=== PATIENT | male | born 1950 | race Caucasian/White ===

== ENCOUNTER 2016-12-02 11:26 | Outpatient (CLI) | payer MEDICARE ==
[~2016-12-02] VITALS: Ht 162.6 cm; Wt 93.2 kg
--- NOTE | ~2016-12-02 | HEMODYNAMI ---
PATIENT:JANELLE MAYERS MEDICAL RECORD: [id number] : 52 LOCATION:[facility] ADMISSION DATE: 12/02/16 Generatedon:12/02/201615:00 Patient name: JANELLE MAYERS Patient #: [id number] SSN: [id number] : 1950 Date of study: 12/02/2016 Page: Of Hemodynamic Procedure Report Patient Data Patient Demographics Procedure consent was obtained First Name: JANELLE Gender: Male Last Name: RIANA : 1950 Middle Initial: ARTEM Age: 66 year(s) Patient #: [id number] Race: SSN: [id number] Additional ID: [id number] Contact details Address: [address] [place] [address] ROAD State: [place] City: [place] Zip code: [address] Admission Admission Data Admission Date: 12/02/2016 Admission Time: 11:26 Arrival Date: 12/02/2016 Arrival Time: 13:30 Admit Source: Other Insurance Payor: Private health insurance Height (in.): 64 BSA: 2 (m2) Height (cm.): 162.56 BMI: 36.05 (kg/m2) Weight (lbs.): 210 Weight (kg.): 95.25 Lab Results Lab Result Date: 12/02/2016 Lab Result Time: 0:00 Biochemistry Name Units Result Min Max BUN mg/dl 16 --(---*)-- 7 18 Creatinine mg/dl 1 --(--*-)-- 0.6 1.3 CBC Name Units Result Min Max Hemoglobin g/dl 13.8 --(*---)-- 13.5 17.5 Procedure Procedure Types Cath Procedure Diagnostic Procedure C [facility] w/Coronaries w/Grafts Procedure Description Procedure Date Procedure Date: 12/02/2016 Procedure Start Time: 14:26 Procedure End Time: 14:56 Procedure Staff Name Function Elisa Artem RT Scrub Donna Juarez RN Nurse Mary Walls RT Monitor Jimmy Cerna MD Performing Physician Procedure Data Cath Procedure Fluoroscopy Diagnostic fluoroscopy Total fluoroscopy Time: 7.5 time: 7.5 min min Diagnostic fluoroscopy Total fluoroscopy dose: dose: 1015 mGy 1015 mGy Contrast Material Contrast Material Type Amount (ml) Isovue 370 57 Entry Location Entry Primary Successful Side Size Upsize Upsize Entry Closure Vargas ccessful Closure Location (Fr) 1 (Fr) 2 (Fr) Remarks Device Remarks Femoral Right 5 Fr Mechanical vein Compression Femoral Right 5 Fr Exoseal artery Estimated blood loss: 5 ml Diagnostic catheters Device Type Used For End Catheter Placement Cordis 5Fr JL 4.0 Left Coronary Catheter (MP) Angiography Cordis Infinity 5Fr AR Multi-vessel MOD Catheter Angiography [place] Sci 5Fr IMT Multi-vessel Catheter Angiography Cordis 5Fr Pigtail LV Angiography Catheter (MP) Procedure Complications No complications Procedure Medications Medication Administration Route Dosage Oxygen NC 2 l/min Heparin Flush Bag added to field 2 bags (1000units/500ml NS) Lidocaine 2% added to field 20 Benadryl I.V. 50 mg Versed I.V. 1 mg Fentanyl I.V. 50 mcg Versed I.V. 1 mg Fentanyl I.V. 50 mcg Fentanyl I.V. 50 mcg Fentanyl I.V. 50 mcg Hemodynamics Rest BSA: 2 (m2) HGB: 13.8 (g/dl) O2 Consumption: Estimated: 226.34 (ml/min) O2 Consu mption indexed: Estimated:113.17 (ml/min/m) Heart Rate: 61 (bpm) Pressure Samples Time Site Value (mmHg) Purpose Heart Use Rate(bpm) 14:51 LV 102/-42,-19 Snapshot 69 14:51 AO 109/35(64) Pullback 70 Gradients Valve Time Site Site 2 Mean SEP/DFP Peak To Heart Use 1 (mmHg) (sec/min) Peak Rate (mmHg) (bpm) Aortic 14:51 LV AO 9 36 70 109/35(64) Calculations Valve P-P Mean Valve Index Valve Source Name Gradient Area Flow (cm2) Aortic 9 9 Snapshots Pre Cath Intra NCS Post Cath Vital Signs Time Heart Resp SPO2 NIBP (mmHg) Rhythm Pain Sedation Rate (ipm) (%) Status Level (bpm) 14:15:21 59 18 95 129/78(112) NSR 0 (11) 10(A) , No pain 14:19:35 57 17 97 148/76(127) NSR 0 (11) 10(A) , No pain 14:23:51 57 15 96 122/78(102) NSR 0 (11) 10(A) , No pain 14:27:57 61 16 96 137/94(101) NSR 0 (11) 10(A) , No pain 14:32:56 64 16 97 Measuring NSR 0 (11) 10(A) , No pain 14:33:10 67 16 95 150/109(132) NSR 0 (11) 9(A) , No pain 14:37:22 66 16 98 156/95(120) NSR 0 (11) 9(A) , No pain 14:41:42 65 16 98 134/94(122) NSR 0 (11) 9(A) , No pain 14:45:58 67 16 98 143/84(122) NSR 0 (11) 9(A) , No pain 14:50:16 69 16 98 139/81(118) NSR 0 (11) 9(A) , No pain 14:54:37 69 21 97 130/79(107) NSR 0 (11) 9(A) , No pain 14:56:06 70 14 97 129/77(110) NSR 0 (11) 10(A) , No pain Medications Time Medication Route Dose Verified Delivered Reason Notes Effec tiveness by by 14:19:35 Oxygen NC 2 Jimmy Donna Per l/min Nehemiah Juarez RN physician 14:19:41 Heparin Flush added 2 Jimmy Jimmy used for Bag to bags Nehemiah Cerna MD procedure (1000units/500ml field NS) 14:19:56 Lidocaine 2% added 20ml Jimmy Jimmy used for to vial Nehemiah Cerna MD procedure field 14:20:04 Benadryl I.V. 50 mg Jimmy Donna Per Nehemiah Juarez RN physician 14:22:35 Versed I.V. 1 mg Jimmy Donna for Nehemiah Juarez RN sedation 14:22:48 Fentanyl I.V. 50 Jimmy Donna for mcg Nehemiah Juarez RN sedation 14:25:18 Versed I.V. 1 mg Jimmy Donna for Nehemiah Juarez RN sedation 14:25:30 Fentanyl I.V. 50 Jimmy Donna for nabil Juarez RN sedation 14:29:31 Fentanyl I.V. 50 Jimmy Donna for nabil Juarez RN sedation 14:40:31 Fentanyl I.V. 50 Jimmy Donna for nabil Juarez RN sedation Procedure Log Time Note 13:50:55 Donna Juarez RN sent for patient. Start room use. 14:07:10 Informed consent obtained and on chart 14:07:15 Admit Source: Other 14:07:20 Arrival Date: 12/02/2016 1:30:00 PM 14:07:28 Insurance Payor : Private health insurance 14:07:50 Patient Height : 162.56 inches 14:07:53 Patient Weight : 95.25 lbs 14:08:14 Diagnostic Cath Status : Elective 14:09:06 Time tracking: Regular hours 14:09:10 Plan of Care:Hemodynamics will remain stable., Cardiac rhythm will remain stable., Comfort level will be maintained., Respiratory function will remain adequate., Patient/ family verbilizes understanding of procedure., Procedure tolerated without complication., Recovers from procedure without complications.. 14:09:30 Patient received from Outpatients to [facility] Alert and oriented. Tansferred to table in Supine position. 14:09:31 Warm blankets applied, and dariusz hugger turned on for patient comfort. 14:09:32 Correct patient and procedure confirmed by team. 14:09:33 Signed procedure consent form obtained from patient. 14:14:15 ECG and BP/O2 sat monitors applied to patient. 14:14:17 Vital chart was started 14:14:19 Baseline sample Acquired. 14:14:25 Rhythm: sinus rhythm 14:14:27 Full Disclosure recording started 14:18:00 H&P Date Dictated: 11/04/2016 H&P Addendum completed by physician on day of procedure. (MUST COMPLETE FOR ALL OUTPATIENTS). 14:18:02 Pre-procedure instructions explained to patient. 14:18:02 Pre-op teaching completed and patient verbalized understanding. 14:18:03 Family in waiting room. 14:18:04 Patient NPO since Midnight. 14:19:35 Oxygen 2 l/min NC was given by Donna Juarez RN; Per physician; 14:19:41 Heparin Flush Bag (1000units/500ml NS) 2 bags added to field was given by Jimmy Cerna MD; used for procedure; 14:19:42 Is the patient allergic to Iodine/contrast media? No. 14:19:43 Was the patient premedicated? No 14:19:55 Is patient on blood thinner?Yes 14:19:56 Lidocaine 2% 20ml vial added to field was given by Jimmy Cerna MD; used for procedure; 14:19:57 ACC The patient was administered the following blood thiners within the last 24 hours: ACCAspirin 14:20:01 Patient diabetic? Yes. 14:20:03 If diabetic: On Metformin? Yes 14:20:04 Benadryl 50 mg I.V. was given by Donna Juarez RN; Per physician; 14:20:10 If on Metformin: Last Dose? 11/30/2016 14:20:13 Previous problem with sedation/anesthesia? No ? 14:20:15 Snore? Yes 14:20:16 Sleep apnea? No 14:20:17 Deviated septum? No 14:20:18 Opens mouth fully? Yes 14:20:19 Sticks out tongue? Yes 14:20:20 Airway obstruction? No ? 14:20:27 Dentures? Yes out 14:20:31 Pre procedure: right dorsailis pedis pulse 1+ Palpable, but thready & weak; easily obliterated 14:20:39 Patient pain scale 0/10 ?. 14:20:58 IV patent on arrival in left forearm with 0.9% NaCl at [facility]. 14:22:12 Lab Result : Creatinine 1 mg/dl 14:22:12 Lab Result : BUN 16 mg/dl 14:22:12 Lab Result : Hemoglobin 13.8 g/dl 14:22:15 Lab results completed and on chart. 14:22:18 Right groin area was prepped with chlora-prep and draped in sterile fashion 14:22:19 Alarms reviewed by R. N. 14:22:19 Sharps counted by scrub and verified by R.N. 14:22:20 Physician arrived 14:22:20 --------ALL STOP TIME OUT------ 14:22:21 Final Timeout: patient, procedure, and site verified with staff and physician. All members of the team are in agreement. 14:22:23 Right groin site verified by team. 14:22:30 Physical assessment completed. ASA score P 2 - A patient with mild systemic disease as per Jimmy Cerna MD. 14:22:33 Sedation plan: IV Moderate Sedation Versed, Fentanyl 14:22:35 Versed 1 mg I.V. was given by Donna Juaerz RN; for sedation; 14::38 Use device set Femoral Dx 14:22:39 Acist Syringe opened to sterile field. 14:22:39 Bag Decanter opened to sterile field. 14:22:40 Cardinal Cath Pack opened to sterile field. 14:22:40 Terumo 5Fr [place] Sheath opened to sterile field. 14:22:41 St Anastacio 260cm J .035 wire opened to sterile field. 14:22:41 Acist Hand Control opened to sterile field. 14:22:42 Acist Manifold opened to sterile field. 14:22:42 Cordis Infinity 5Fr Multipack catheter opened to sterile field. 14:22:43 Tegaderm 4 x 4 opened to sterile field. 14:22:44 IV Extension Set opened to sterile field. 14:22:47 Procedure started. 14:22:48 Fentanyl 50 mcg I.V. was given by Donna Juarez RN; for sedation; 14:25:18 Versed 1 mg I.V. was given by Donna Juarez RN; for sedation; 14:25:30 Fentanyl 50 mcg I.V. was given by Donna Juarez RN; for sedation; 14:26:34 Local anesthetic to right femoral artery with Lidocaine 2% by Jimmy Cerna MD.INITIAL ACCESS ONLY 14:26:43 A 5 Fr sheath was inserted into the Right Femoral vein 14:29:31 Fentanyl 50 mcg I.V. was given by Donna Juarez RN; for sedation; 14:34:35 Terumo 5Fr [place] Sheath opened to sterile field. 14:39:29 A 5 Fr sheath was inserted into the Right Femoral artery 14:39:42 A Cordis 5Fr JL 4.0 Catheter () was advanced over the wire and used for Left Coronary Angiography. 14:40:31 Fentanyl 50 mcg I.V. was given by Donna Juarez RN; for sedation; 14:40:31 LCA angiography performed. 14:40:35 Injector settings: Ml/sec: 3, Volume: 6, 14:41:27 Catheter removed. 14:41:33 A Cordis Infinity 5Fr AR MOD Catheter was advanced over the wire and used for Multi-vessel Angiography. 14:42:45 SVG to RCA angiography performed. 14:43:24 SVG to Circ angiography performed. 14:44:32 SVG to Diag angiography performed. 14:46:11 Catheter removed. 14:47:05 A Vantrix 5Fr IMT Catheter was advanced over the wire and used for Multi-vessel Angiography. 14:47:35 PEREZ angiography performed. 14:47:40 Injector settings: Ml/sec: 3, Volume: 6, 14:49:58 Catheter removed. 14:50:05 A Cordis 5Fr Pigtail Catheter (MP) was advanced over the wire and used for LV Angiography. 14:51:22 LV hemodynamics recorded. 14:51:24 LV gram done using ALMANZAR 14:51:28 Injector settings: Ml/sec: 5, Volume: 15, 14:51:39 EF : 50 % 14:51:56 Catheter removed. 14:53:29 Cordis 5Fr Exoseal opened to sterile field. 14:54:32 Sheath removed intact; hemostasis achieved with Exoseal to the Right Femoral artery. 14:54:42 Sheath removed intact; hemostasis achieved with Mechanical Compression to the Right Femoral vein. 14:54:50 Procedure ended.(Physican Out) 14:55:14 Fluoroscopy time 07.50 minutes. 14:55:28 Fluoroscopy dose: 1015 mGy 14:55:28 Flurop Dose total: 1015 14:55:32 Contrast amount:Isovue 370 57ml. 14:55:34 Sharps counted by scrub and verified by R.N. 14:55:36 Insertion/operative site no bleeding no hematoma. 14:55:47 Post-op/insertion site Right Femoral artery dressed using a 4 x 4 and Tegaderm. 14:55:51 Post right femoral artery:stable 14:55:53 Post Procedure Pulses reassessed and unchanged 14:55:56 Post procedure rhythm: unchanged. 14:55:58 Estimated blood loss: 5 ml 14:55:59 Post procedure instruction explained to patient.Patient verbalizes understanding. 14:56:06 Patient needs reinforcement of post procedure teaching. 14:56:12 Procedure and supply charges have been captured, reviewed, submitted and are correct. 14:56:17 Procedure Complication : No complications 14:56:19 Vital chart was stopped 14:56:20 See physician's report for complete and final results. 14:56:48 Report given to Outpatients. 14:56:51 Patient transfered to Outpatients with Stretcher. 14:56:53 Procedure ended. 14:56:53 Full Disclosure recording stopped 14:57:06 End room use (Document Last) Device Usage Item Name Manufacture Quantity Catalog Number Hospital Part Current Minimal Lot# / Charge Number Stock Stock Serial# Code Acist Acist 1 32449 335941 258778 304297 20 Syringe [employer] Inc Bag Microtek 1 2002S 861246 13200 906613 5 Decanter [employer] Inc. Cardinal Cardinal 1 [id number] 246065 27543 995052 5 Cath Pack Xi3 Terumo Terumo 2 [id number] 272907 787858 987198 [address] [place] [address] Anastacio 1 406809 437622 826463 421699 30 260cm J .035 wire Acist Acist 1 18423 612790 576679 209978 5 Hand Medical Control Systems Inc Acist Acist 1 34851 811617 216437 378667 5 Manifold [employer] Inc Cordis Cardinal 1 [id number] 238680 88246 402878 30 Zweemie 5Fr Multipack catheter Tegaderm 3M 1 1626W 304805 502673 365360 5 4 x 4 IV Hospira 1 23709-89 751850 28387 384691 5 Extension Set Cordis Cardinal 1 462644 5 5Fr Health 4.0 Catheter (MP) Cordis Cardinal 1 [id number] 196616 948447 046015 15 Zweemie 5Fr AR MOD Catheter [place] 1 [id number] 848350 425805 25511 5 Sci 5Fr Scientific IMT Catheter Cordis Cardinal 1 218311 5 5Fr Health Pigtail Catheter (MP) Cordis Cardinal 1 EX500 613863 590868 829047 10 5Fr Health Exoseal Signature Audit [place] Stage Time Signature Unsigned Intra-Procedure 12/02/2016 Mary Walls 3:00:37 PM RT(R) Signatures Monitor : Mary Walls RT Signature : Date : Time : [address] [place] [address]
[~2016-12-02 11:26] MED LIST: ASPIRIN325 MG PO; BRILINTA90 MG PO; COUMADIN3 MG PO; COUMADIN5 MG PO; DESERYL100 MG PO; FIBRICOR105 MG PO; GLUCOPHAGE500 MG PO; IMDUR60 MG PO; LISINOPRIL2.5 MG PO; PLAVIX75 MG PO; PRILOSEC20 MG PO; TENORMIN50 MG PO; TOPROL XL25 MG PO; ZOCOR80 MG PO
[2016-12-02] MEDS ORDERED: NEURONTIN 300300 MG PO (12:10)
[2016-12-02] MEDS ORDERED: LIPITOR40 MG PO (12:11)
[2016-12-02 12:20] VITALS: BP 123/74; Ht 162.6 cm; Wt 93.2 kg
[2016-12-02 12:22] LABS: BASOPHILS 0.1 % (0.0-2.0); EOSINOPHILS 1.7 % (0-7); HEMATOCRIT 39.7 % (42.0-54.0); HEMOGLOBIN 13.8 g/dL (13.5-17.5); IMMATURE GRANULOCYTES 0.3 % (0-5); LYMPHOCYTES 22.8 % (15-50); MCHC 34.8 g/dL (31.0-37.0); MCV 89.2 fL (80.0-100.0); MEAN PLATELET VOLUME 10.1 fL (7.4-10.4); MONOCYTES 8.6 % (2-11); NEUTROPHILS 66.5 % (40-80); PLATELET COUNT 136 10x3/uL (130-400); RBC 4.45 10x6/uL (4.20-6.10); WBC 7.2 10x3/uL (4.8-10.8)
[2016-12-02 12:54] LABS: CALC OSMOLALITY 285 mosm/kg (275-300); CALCIUM 8.8 mg/dL (8.5-10.1); CARBON DIOXIDE 27.1 mmol/L (21.0-32.0); CHLORIDE - SERUM 105 mmol/L (98-107); POTASSIUM - SERUM 4.1 mmol/L (3.5-5.1); SODIUM 139 mmol/L (136-145); UREA NITROGEN 16 mg/dL (7-18); eGFR NON AFRICAN AMERICAN 80 mL/min (90-120)
[2016-12-02 13:03] LABS: GLUCOSE 232 mg/dL (74-106)
--- NOTE | 2016-12-02 17:10 | NUR ---
PATIENT AMBULATES TO BATHROOM WITH STAND-BY ASSIST AND VOIDS LARGE AMOUNT IN TOILET WITHOUT DIFFICULTY. LEFT WRIST PIV DC'D WITH TIP INTACT. PATIENT DRESSING IN PERSONAL CLOTHING. RIGHT GROIN ASSESSED IMMEDIATELY AFTER AMBULATION, AREA CONTINUES TO BE WITHOUT BLEEDING OR HEMATOMA.
--- NOTE | 2016-12-02 17:35 | NUR ---
DISCHARGE INSTRUCTIONS REVIEWED WITH PATIENT, DISCHARGED HOME VIA WHEELCHAIR TO PRIVATE VEHICLE WITH FRIEND, WITH DC INSTRUCTIONS IN HAND
--- NOTE | 2016-12-10 13:16 | OP ---
PATIENT NAME: JANELLE MAYERS MEDICAL RECORD: [id number] :52 LOCATION:D.CAT ADMISSION DATE: SURGEON: IZA RIOS M.D. DATE OF OPERATION: 12/02/2016 REFERRING PHYSICIAN: Rd Solorio MD. PROCEDURES PERFORMED: 1. Selective coronary angiography. 2. Left heart catheterization with ventriculogram. 3. Bypass angiography. 4. Left internal mammary injection. INDICATION: A 66-year-old gentleman with coronary artery disease presents with recurrent discomfort. Recent stress testing revealed inferior wall ischemia. EQUIPMENT USED: A 5-Faroese JL4, AR modified catheter, mammary catheter, pigtail catheter. TECHNIQUE: A 5-Faroese sheath was inserted in retrograde fashion in the right common femoral artery. Next, selective coronary angiography was performed in standard 5-Faroese JL4, AR modified catheters. Bypass angiography was performed using an AR modified catheter. Mammary catheter was used to cannulate the internal mammary artery. Final, left heart catheterization, warrants pigtail catheter. CORONARY ANATOMY: 1. Left main: Left main trunk is moderate in caliber. It gives rise to the LAD and circumflex. There is no obstruction. 2. LAD: This vessel is 100% occluded at the junction of proximal mid segment. 3. Circumflex: This vessel is 100% occluded in the proximal segment. 4. The right coronary artery: This vessel has a long 90% stenosis throughout the mid segment. There is competitive flow seen in the PDA. 5. Saphenous vein graft to the PDA. This graft is widely patent throughout its course. The anastomosis is free of disease. Beyond the anastomosis, there is no significant obstruction seen. 6. Saphenous vein graft to circumflex. This graft is widely patent throughout its course. The anastomosis is free of disease. 7. Saphenous vein graft to diagonal branches graft is small but widely patent. 8. Left internal mammary artery to LAD: This graft is widely patent throughout its course. The anastomosis is free of disease. 9. Left ventricle: Left ventricle is normal size. No wall motion abnormalities are seen. Its ejection is 45% to 50%. IMPRESSION: 1. Severe [place] coronary artery disease. 2. Patent bypass graft to the circumflex, diagonal, left anterior descending, posterior descending artery. RECOMMENDATIONS: I suspect that stress test was a false positive. All areas were well protected. We will continue with medical management. TRANSINT:[id number] Voice Confirmation ID: [id number] DOCUMENT ID: [id number] OPERATIVE REPORT [id number] JANELLE MAYERS TIMOTHY E M.D. at 1316 CC: [id number] DICTATION DATE: 12/02/16 1503 LIFE TRAINER: 12/02/164 DEP CLI 12/02/16 [place] [id number] [place] [id number]
== END 2016-12-02 17:35 | disposition home or self-care (01) ==
LOC: D.CATH 11:26
PROVIDERS: Internal Medicine Cardiovascular Disease
DX: I25.10 Atherosclerotic heart disease of native coronary artery without angina pectoris (principal); Z95.1 Presence of aortocoronary bypass graft

== ENCOUNTER → 2017-05-13 19:11 | Outpatient (CLI) | payer MEDICARE ==
[2016-12-02 12:20] VITALS: BMI 35.2
[~2017-05-13 19:11] MED LIST changes: +LIPITOR40 MG PO; +NEURONTIN 300300 MG PO
== END | disposition home or self-care (01) ==
LOC: D.LABREF 19:11
DX: Z13.9 Encounter for screening, unspecified (principal)

== ENCOUNTER 2018-05-04 05:20 | Day surgery (SDC) | payer MEDICARE ==
[2018-05-03 09:55] LABS: HEMATOCRIT 44.4 % (42.0-54.0); HEMOGLOBIN 15.1 g/dL (13.5-17.5); MCH 31.6 pg (26.0-34.0); MCV 92.9 fL (80.0-100.0); MEAN PLATELET VOLUME 9.7 fL (7.4-10.4); RBC 4.78 10x6/uL (4.20-6.10); RDW 13.1 % (11.5-14.5)
[2018-05-03 10:05] LABS: CALC OSMOLALITY 283 mosm/kg (275-300); CALCIUM 9.4 mg/dL (8.5-10.1); CARBON DIOXIDE 33.4 mmol/L (21.0-32.0); CHLORIDE - SERUM 103 mmol/L (98-107); POTASSIUM - SERUM 4.8 mmol/L (3.5-5.1); SODIUM 141 mmol/L (136-145); UREA NITROGEN 15 mg/dL (7-18); eGFR NON AFRICAN AMERICAN 79 mL/min (90-120)
[2018-05-03 10:06] LABS: GLUCOSE 137 mg/dL (74-106)
[~2018-05-04] VITALS: Ht 162.6 cm; Wt 90.7 kg
--- NOTE | ~2018-05-04 | OP ---
PATIENT NAME: JANELLE MAYERS MEDICAL RECORD: [id number] :52 LOCATION:[facility] ADMISSION DATE: SURGEON: FRAN JACOBO DO DATE OF OPERATION: 05/04/2018 PROCEDURES PERFORMED: Left knee arthroscopy with partial lateral meniscectomy, partial synovectomy. PREOPERATIVE DIAGNOSIS: Meniscal tear. 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 INDICATIONS: Mr. Mayers is a 67-year-old male that has had intermittent swelling and pain after getting up and down off a tractor about a month ago. It has been going on for some time and he was tired of dealing with pain. He got an MRI, which showed meniscal tear and he wanted something done surgically. I informed him of the risks and benefits of this procedure in detail with him. Due to his age, and we may encounter some osteoarthritis, that did show up on the MRI, and it could be some of the cause of that pain. It was ended up we may not be able to completely resolve his pain and swelling. He was okay with that and I told him we could trim out the meniscus and see if that helps resolve the symptoms. He consented to the procedure. SURGEON: Fran Jacobo DO DESCRIPTION OF THE PROCEDURE: The patient was given 2 grams Ancef per antibiotic, taken to the operative suite, laid in supine position, given general anesthetic. The left lower extremity was prepped and draped in sterile fashion with a tourniquet above the knee, which was not inflated. After he was prepped and draped, a timeout was performed. Everyone was in agreement with the correct side, site, and patient. The left knee was then flexed. The lateral anterior portal was started with a 11-blade scalpel and the trocar was entered into the knee and up into the suprapatellar pouch. The leg was brought into extension. The suprapatellar pouch was inspected as well as the lateral gutter of the knee. Synovitis was encountered and noted, it was quite inflamed over the midportion of the knee as well as the lateral gutter. The medial gutter was then inspected. No loose bodies were seen there either and the knee was flexed. The medial portal was then established with 11-blade scalpel after an 18-gauge spinal needle was directed to start the portal. The trocar was used to open up the portal. The shaver was then used to trim out the synovitis and the medial joint line was inspected. There was no chondromalacia seen on the femur and a small amount on the tibia. A probe was then used to probe the meniscus on the medial side and no obvious tears were seen. It seemed to be in good shape. More synovium was then trimmed out over the anterior knee. Due to the thickness of it and inflammatory state, and the ACL was probed, seemed to be very taut and in good position. The knee was then brought into a [id number] position and the lateral compartment was entered. There was no chondromalacia seen on the femur or the tibia; however, there was a small meniscal tears along the midportion of the lateral meniscus and these were trimmed out with the shaver. It was then probed and no further tears were seen in the lateral meniscus. The knee was then brought into extension and the scope inspected. The patellofemoral aspect of the knee joint and grade III chondromalacia was encountered in the trochlea. All the cartilage was seen to be stable and then was trimmed out at that point. The knee was then left in extension and the OPERATIVE REPORT [id number] JANELLE MAYERS OLIVIER suction was turned on, the water was turned off and the remaining fluid was sucked out of the knee. The trocars were removed from the knee as well as the shaver and the portal sites were closed with 4-0 Monocryl using inverted interrupted single stitch. Steri-Strips, Adaptic, 4 x 4's, ABD and a [place], Felipe wrap were then placed on the knee. The patient was awakened and taken to recovery in stable condition. Blood loss was minimal. TRANSINT:[id number] Voice Confirmation ID: [id number] DOCUMENT ID: [id number] FRAN JACOBO DO at 1341 CC: [id number] DICTATION DATE: 05/04/18826 THORACIC MEDICINE PHYSICIAN: 05/04/18 1020 [facility] 05/04/18 [place] [address]
[~2018-05-04 05:20] MED LIST changes: +AMBIEN10 MG PO; +GLUCOTROL ER2.5 MG PO; +LOPRESSOR25 MG PO
[2018-05-04 06:14] VITALS: BP 120/69; Ht 162.6 cm; Wt 90.7 kg
[2018-05-04] MEDS ORDERED: PERCOCET 5-3251 TAB PO (07:20)
== END 2018-05-04 10:00 | disposition home or self-care (01) ==
LOC: D.OPS 05:20 → D.PAN 07:30 → D.OPS 10:00
PROVIDERS: Anesthesiology
DX: S83.282A Other tear of lateral meniscus, current injury, left knee, initial encounter (principal); X58.XXXA Exposure to other specified factors, initial encounter; E66.9 Obesity, unspecified; Z01.812 Encounter for preprocedural laboratory examination; M94.262 Chondromalacia, left knee; E11.9 Type 2 diabetes mellitus without complications; I10 Essential (primary) hypertension; I25.10 Atherosclerotic heart disease of native coronary artery without angina pectoris; Z86.73 Personal history of transient ischemic attack (TIA), and cerebral infarction without residual deficits

== ENCOUNTER → 2018-11-04 08:24 | Outpatient (CLI) | payer MEDICARE ==
[2018-05-04 06:14] VITALS: BMI 34.4
[~2018-11-04 08:24] MED LIST changes: +PERCOCET 5-3251 TAB PO
== END | disposition home or self-care (01) ==
LOC: D.HCCARDIO 08:24
DX: I25.10 Atherosclerotic heart disease of native coronary artery without angina pectoris (principal)

== ENCOUNTER → 2019-06-20 10:56 | Outpatient (CLI) | payer MEDICARE ==
[2018-05-04 06:14] VITALS: BMI 34.4
[~2019-06-20 10:56] MED LIST changes: +GLUCOPHAGE1000 MG PO; -GLUCOPHAGE500 MG PO
== END | disposition home or self-care (01) ==
LOC: D.MRI 10:56
PROVIDERS: ATTEND Orthopaedic Surgery
DX: M23.307 Other meniscus derangements, unspecified meniscus, left knee (principal)

== ENCOUNTER 2019-07-12 06:15 | Day surgery (SDC) | payer MEDICARE ==
[2019-07-11 11:43] LABS: HEMATOCRIT 41.4 % (42.0-54.0); HEMOGLOBIN 14.7 g/dL (13.5-17.5); MCH 31.6 pg (26.0-34.0); MCHC 35.5 g/dL (31.0-37.0); MEAN PLATELET VOLUME 9.8 fL (7.4-10.4); RBC 4.65 10x6/uL (4.20-6.10); RDW 12.9 % (11.5-14.5); WBC 5.8 10x3/uL (4.8-10.8)
[2019-07-11 11:57] LABS: CALC OSMOLALITY 281 mosm/kg (275-300); CALCIUM 8.9 mg/dL (8.5-10.1); CARBON DIOXIDE 30.3 mmol/L (21.0-32.0); CHLORIDE - SERUM 102 mmol/L (98-107); GLUCOSE 114 mg/dL (74-106); POTASSIUM - SERUM 4.7 mmol/L (3.5-5.1); SODIUM 140 mmol/L (136-145); UREA NITROGEN 19 mg/dL (7-18); eGFR NON AFRICAN AMERICAN 79 mL/min (90-120)
[~2019-07-12] VITALS: Ht 162.6 cm; Wt 90.7 kg
[2019-07-12 07:48] VITALS: BP 133/65; Ht 162.6 cm; Wt 90.7 kg
--- NOTE | 2019-07-12 08:10 | NUR ---
EPINEHRINE 1ML ADDED TO 3000ML NACL
--- NOTE | 2019-07-12 08:10 | NUR ---
BG 123, FINGER STICK MV
--- NOTE | 2019-07-12 09:59 | NUR ---
LEFT KNEE PARTIAL MEDIAL AND LATERAL MENISCECTOMY ABRASIAN CHONDOPLASTY TROCH. GOYO
[2019-07-12] MEDS ORDERED: PERCOCET 5-3251 TAB PO (10:09)
--- NOTE | 2019-07-12 12:21 | NUR ---
1145 IV REMOVED 1215 PT DISCHARGED WITH INSTRUCTIONS
--- NOTE | 2019-07-12 14:52 | OP ---
PATIENT NAME: JANELLE MAYERS MEDICAL RECORD: [id number] :52 LOCATION:[facility] ADMISSION DATE: SURGEON: FRAN JACOBO DO DATE OF OPERATION: 07/12/2019 PROCEDURE PERFORMED: Left knee arthroscopy with medial tibial plateau subchondroplasty, partial medial and partial lateral meniscectomy, and trochlear abrasion chondroplasty. PREOPERATIVE DIAGNOSES: Left knee subchondral fracture of the medial tibial plateau, medial and lateral meniscal tears, and grade III chondromalacia of the trochlea. POSTOPERATIVE DIAGNOSES: Left knee subchondral fracture of the medial tibial plateau, medial and lateral meniscal tears, and grade III chondromalacia of the trochlea. INDICATIONS: Mr. Mayers is a 68-year-old male who had a left knee pain for quite some time. He has had scoped before. He has had injections to no avail. We got an MRI, he really did not have much arthritis or joint space narrowing on x-ray. On the MRI, it did show the subchondral lesion or fracture of the medial tibial plateau, unknown how long it was there, a definite edema in it. I told him we could try subchondroplasty. It also showed a medial meniscal tear, I told him we trim that out at the same time and lateral meniscal tear and some chondromalacia of the trochlea. I informed him of the risks including infection, bleeding, damage to nerves and vessels, need for further surgery, continued pain, and possibly the total knee. He was okay with those risks as well as risk of blood clots and signed the consent. SURGEON: Fran Jacobo DO DESCRIPTION OF PROCEDURE: The patient received a block by anesthesia in the preoperative area. He was taken to the operative suite, laid in supine position and given general anesthetic. LMA was placed. Two grams Ancef were given. The left lower extremity was prepped and draped and a timeout was performed, everyone was in agreement with the correct side, site, patient and procedure. Then, first began by getting the subchondroplasty done locating the spot with C-arm. An incision was made over the medial tibial plateau and the trocar was entered into the knee in the spot that was located on the MRI and then the medial tibial plateau. 5 cc of AccuFill were then entered into the knee. Once that was completed, it was left in for the Accufill to dry and the knee scope began. The lateral portal was established with an 11-blade scalpel. Trocar was entered into the knee. The suprapatellar pouch did have a loose body that appeared to be cartilage in the suprapatellar pouch and then the lateral and medial gutters were inspected. Knee was then flexed down and the medial portal was established with an 18-gauge spinal needle and 11-blade scalpel. Probe was brought in and it was seen to have a medial meniscal tear right in the middle horn of the meniscus. This was trimmed out with a biter and shaver. The loose body cartilage was seen, the suprapatellar pouch was taken at that time as well with the suction on the shaver. Then, the ACL was checked to be in good shape. The medial femoral condyle as well as the medial tibial plateau did not have severe chondromalacia, maybe grade II chondromalacia. The ACL looked good. In the lateral compartment no chondromalacia was noted; however, the lateral meniscus did have a tear on the medial horn at the inner most portion. This was trimmed out and shaved out. Once that was performed, the AccuFill had dried and OPERATIVE REPORT [id number] JANELLE MAYERS the trochlea was inspected, seen to have grade III chondromalacia. Then, abrasion chondroplasty was done on the trochlea. Suction was turned on. Water was turned off and the excess fluid removed from the knee. Each of the sides that were made were closed with 4-0 Monocryl in inverted interrupted fashion and then Steri-Strips, Adaptic, 4 x 4's, ABD, Webril, Felipe wrap, and BALJIT stockings placed up to the knee. The patient was then awakened and taken to recovery in stable condition. BLOOD LOSS: Minimal. COMPLICATIONS: None. TRANSINT:[id number] Voice Confirmation ID: [id number] DOCUMENT ID: [id number] FRAN JACOBO DO at 1452 CC: [id number] DICTATION DATE: 07/12/19 1021 PRINCIPAL TRAINER: 07/12/19 1243 [facility] 07/12/19 [facility] [address] [place] [address]
== END 2019-07-12 12:15 | disposition home or self-care (01) ==
LOC: D.OPS 06:15 → D.PAN 08:15 → D.OPS 08:15 → D.PAN 09:30 → D.OPS 12:15
PROVIDERS: Anesthesiology; ATTEND Orthopaedic Surgery
DX: S82.142A Displaced bicondylar fracture of left tibia, initial encounter for closed fracture (principal); S83.242A Other tear of medial meniscus, current injury, left knee, initial encounter; S83.282A Other tear of lateral meniscus, current injury, left knee, initial encounter; M94.262 Chondromalacia, left knee; Z01.812 Encounter for preprocedural laboratory examination

== ENCOUNTER → 2019-09-19 11:16 | Outpatient (CLI) | payer MEDICARE ==
[2019-07-12 07:48] VITALS: BMI 34.4
== END | disposition home or self-care (01) ==
LOC: D.HCCECHO 11:16
PROVIDERS: ATTEND Internal Medicine Cardiovascular Disease
DX: I25.10 Atherosclerotic heart disease of native coronary artery without angina pectoris (principal)

== ENCOUNTER → 2020-04-18 15:03 | Outpatient (CLI) | payer MEDICARE ==
[2019-07-12 07:48] VITALS: BMI 34.4
== END | disposition home or self-care (01) ==
LOC: D.MRI 15:03
PROVIDERS: ATTEND Orthopaedic Surgery
DX: M25.562 Pain in left knee (principal)